=== PATIENT | male | born 2000 | race Caucasian/White ===

== ENCOUNTER 2021-10-31 00:20 | Emergency (ER) | payer OTHER ==
[2021-10-31 00:46] VITALS: BP 111/51
[2021-10-31 01:06] LABS: RAPID STREP SCREEN Negative (Negative)
--- NOTE | 2021-10-31 01:50 | ED Physician Documentation ---
PD HPI HEENT - Stated complaint Stated Complaint: SORE THROAT - Chief complaint Chief Complaint: Heent - History obtained from History obtained from: Patient - History of Present Illness Timing - onset: How many days ago (1-2) Timing - details: Gradual onset Pain level now: 7 Location: Throat Improves: Nothing Worsens: Swalllowing Associated symptoms: Fever (Tmax 101). No: Facial swelling, Headache, Cough Recently seen: Not recently seen Review of Systems Constitutional: reports: Fever Ears: denies: Ear pain Nose: reports: Reviewed and negative Throat: reports: Sore throat Respiratory: denies: Dyspnea, Cough PD PAST MEDICAL HISTORY - Past Medical History Past Medical History: Yes HEENT: Other Other Past Medical History: Strep; Tonsillitis - Past Surgical History Past Surgical History: No - Present Medications Home Medications: Ambulatory Orders Medication Instructions Recorded Confirmed traMADol [Ultram] 50 - 100 mg PO Q6H PRN #20 tablet 10/31/21 - Allergies Allergies/Adverse Reactions: Allergies Allergy/AdvReac Type Severity Reaction Status Date / Time No Known Drug Allergies Allergy Verified 10/31/21 00:46 - Social History Does the pt smoke?: No Smoking Status: Never smoker Does the pt drink ETOH?: No Does the pt have substance abuse?: No - Immunizations Immunizations are current?: Yes - POLST Patient has POLST: No PD ED PE NORMAL - Vitals Vital signs reviewed: Yes - General General: Alert and oriented X 3, No acute distress, Well developed/nourished - Neck Neck: Supple, no meningeal sign - Respiratory Respiratory: No respiratory distress, Clear bilaterally PD ED PE EXPANDED - HEENT HEENT: Pharyngeal erythema (mild/moderate posterior oropharyngeal erythema without swelling or exudate) Results - Vitals Vitals: Oxygen O2 Source Room air - Labs Labs: Microbiology 10/31/21 00:48 Group A Strep Throat Culture - Final Throat MIXED OROPHARYNGEAL DAPHNIE PRESENT. NO BETA STREP PRESENT IN CULTURE. Laboratory Tests 10/31/21 00:48 Group A Strep Rapid Negative PD MEDICAL DECISION MAKING - ED course Complexity details: reviewed results, considered differential, d/w patient ED course: Pharyngitis with negative rapid strep. Given PO decadron. He has been taking tylenol and ibuprofen without adequate relief. In discussing other options for analgesia, tramadol seems most appropriate and this is given and prescribed I am prescribing a short course of short-acting opioid pain medication for this patient. I have reviewed the patients [employer] and no concerning findings were noted. I have discussed that the opioids are for short term therapy only, and will not be refilled from the ED Departure - Departure Disposition: 01 Home, Self Care Clinical Impression: Sore throat Condition: Good Instructions: ED Pharyngitis Viral Report Pending Follow-Up: HORACIO GARDINER MD [Primary Care Provider] - (3-5 days if not resolved) Prescriptions: traMADol [Ultram] 50 - 100 mg PO Q6H PRN #20 tablet PRN Reason: Pain Comments: Your rapid strep test was negative. A culture will next be done and the results of this test are usually available within 1-2 days; if the result is positive, you will receive a call at home from us and an antibiotic can then be sent to your pharmacy of choice. If the test is negative or inconclusive, you will not receive a call. A prescription for tramadol (narcotic pain medication) has been electronically submitted to [facility] pharmacy in [place]. I am prescribing a short course of narcotic pain medication for you. These are potentially dangerous and addictive medications that should be used carefully. These medications may constipate you. Take an [id number] stool softener (docusate) twice daily with plenty of water while taking these medications. If you go 24 hours without a bowel movement, take [id number] miralax, per package instructions. Do not drink or drive while taking these medications. If you received narcotic or sedating medications while in the emergency department, do not drive for 24 hours. Store this medication in a safe, secure place and out of reach of children. It is a violation of federal law to give or sell this medication to another person or to use in a manner other than prescribed. The ED will not refill narcotic prescriptions, including prescriptions lost or stolen. To dispose of unwanted medications: 1. [facility] at [address] in [place] has a medication drop box. They accept prescription medications (in pill form) Monday through Monday 9:00 a.m. to 5:00 p.m. 2. The [facility] [employer] accepts prescription medications (in pill form only) for disposal year round. Call for more information. 3. Contact the [facility] for the next [facility] sponsored prescription drug collection event. , [phone], or [phone]; Discharge Date/Time: 10/31/21 02:19
[2021-10-31] MEDS ORDERED: CHERRY SYRUP 10 ML UDC PO ONE (02:09)
[2021-10-31] MEDS ORDERED: DEXAMETHASONE 10 MG/ML VIAL PO STA (02:09)
[2021-10-31] MEDS ORDERED: traMADol 50 MG TABLET PO STA (02:09)
== END 2021-10-31 02:19 | disposition home or self-care (01) ==
LOC: ED 00:20
DX: J02.9 Acute pharyngitis, unspecified (principal)
CPT/HCPCS: 87070; 87430; 99283; A9270

== ENCOUNTER 2023-04-15 10:45 | Outpatient (CLI) | payer OTHER | END 2023-04-15 11:00 | disposition home or self-care (01) | LOC: LAB.N 10:45 | PROVIDERS: ATTEND Physician Assistant Medical | DX: J06.9 Acute upper respiratory infection, unspecified (principal) | CPT/HCPCS: 87070 ==